=== PATIENT | male | born 1970 | race Caucasian/White ===

== ENCOUNTER 2017-06-20 19:22 | Emergency (ER) | payer SELFPAY ==
[~2017-06-20] VITALS: Ht 175.3 cm; Wt 77.0 kg
[~2017-06-20 19:22] MED LIST: MELO15TA2 PO; ROBA750T3 PO; TRAM50 PO; VARE.5 PO
[2017-06-20 19:39] VITALS: BP 177/112; PULSE 92; RESP 18; TEMP 98.6; O2SAT 98
[2017-06-20] MEDS ORDERED: CARA1TAB6 PO (19:39)
[2017-06-20] MEDS ORDERED: AMLO10TA2 PO (19:39)
[2017-06-20] MEDS ORDERED: NEXI20CA PO (19:39)
[2017-06-20] MEDS ORDERED: SODIUM CHLOR 0.9% 1000 ML INJ 1,000 ML IV SCH (19:52)
[2017-06-20] MEDS ORDERED: SODIUM CHLORIDE 0.9% FLUSH 10 ML FLUSH IV FLUSH PRN (20:00)
[2017-06-20] MEDS ORDERED: LORazepam 2 MG/ML VIAL IV PUSH ONE (20:00)
--- NOTE | 2017-06-20 20:00 | PD ---
HPI Chief Complaint: Flank/Kidney Pain Time Seen by Provider: 19:40 Travel History International Travel<30 days: No Contact w/Intl Traveler<30days: No Traveled to known affect area: No History of Present Illness HPI 47yo M with PMH of HTN, alcohol abuse, gastric ulcer, nephrolithiasis presents to the ED with c/o left sided abdominal pain for 3 days. States it starts in left flank and radiates to left abdomen and it is sharp, constant. Had increased urinary frequency and urine looked a little pink. Also with palpitations and diaphoresis that started yesterday and is episodic. Last drank alcohol 1 week ago and said he does not drink every day anymore. Denies any fever, cough, chest pain, sob, n/v, focal weakness or numbness. PFSH Past Medical History Cardiovascular Problems: Yes Diminished Hearing: No Gastrointestinal Disorders: Yes GERD: Yes Hypertension: Yes Kidney Stones: Yes Renal Failure: Yes (pt states) Tetanus Vaccination: Unknown Influenza Vaccination: No Past Surgical History Abdominal Surgery: Yes Appendectomy: Yes Social History Alcohol Use: No Tobacco Use: Yes Substance Use: No Allergies-Medications (Allergen,Severity, Reaction): Coded Allergies: epinephrine (Unverified Allergy, Severe, Anaphylaxis, 06/20/17) Reported Meds & Prescriptions Reported Meds & Active Scripts Active Tylenol (Acetaminophen) 325 Mg Tab 650 Mg PO Q6H PRN Reported Nexium (Esomeprazole DR) 20 Mg Capdr 20 Mg PO DAILY Carafate (Sucralfate) 1 Gram Tab 1 Gm PO QID On empty stomach Amlodipine (Amlodipine Besylate) 10 Mg Tab 10 Mg PO BID Review of Systems Except as stated in HPI: all other systems reviewed are Neg Physical Exam Narrative GENERAL: 47yo M in moderate distress. SKIN: Focused skin assessment warm/dry. HEAD: Atraumatic. Normocephalic. EYES: Pupils equal and round at 5mm bilaterally. EOMI. ENT: No nasal bleeding or discharge. Mucous membranes pink and moist. NECK: Trachea midline. No JVD. CARDIOVASCULAR: Regular rate and rhythm. No murmur appreciated. RESPIRATORY: No accessory muscle use. Clear to auscultation. Breath sounds equal bilaterally. GASTROINTESTINAL: Abdomen soft, +TTP LUQ. No rebound tenderness or guarding. BACK: No midline ttp thoracic or lumbar spine. +CVA tenderness on left. MUSCULOSKELETAL: No obvious deformities. No clubbing. No cyanosis. No edema. NEUROLOGICAL: Awake and alert. No obvious cranial nerve deficits. Motor grossly within normal limits. Normal speech. +Tongue fasciculations. +Mild tremors in upper extremities. Data Data Last Documented VS Vital Signs Date Time Temp Pulse Resp B/P (MAP) Pulse Ox O2 Delivery O2 Flow Rate FiO2 06/20/17 20:37 92 18 163/109 (127) 98 Room Air 06/20/17 19:39 98.6 Orders Orders Lorazepam Inj (Ativan Inj) (06/20/17 20:00) Complete Blood Count With Diff (06/20/17 19:52) Comprehensive Metabolic Panel (06/20/17 19:52) Lipase (06/20/17 19:52) Prothrombin Time / Inr (Pt) (06/20/17 19:52) Act Partial Throm Time (Ptt) (06/20/17 19:52) Urinalysis - C+S If Indicated (06/20/17 19:52) Ct Abd/Pel W/O Iv Contrast (06/20/17 19:52) Iv Access Insert/Monitor (06/20/17 19:52) Ecg Monitoring (06/20/17 19:52) Oximetry (06/20/17 19:52) Sodium Chlor 0.9% 1000 Ml Inj (Ns 1000 M (06/20/17 19:52) Sodium Chloride 0.9% Flush (Ns Flush) (06/20/17 20:00) Troponin I (06/20/17 19:53) Alcohol (Ethanol) (06/20/17 19:54) Morphine Inj (Morphine Inj) (06/20/17 20:30) Morphine Inj (Morphine Inj) (06/20/17 21:15) Ed Discharge Order (06/20/17 21:45) Labs Laboratory Tests Test 06/20/17 19:55 White Blood Count 8.4 TH/MM3 Red Blood Count 4.73 MIL/MM3 Hemoglobin 14.9 GM/DL Hematocrit 44.8 % Mean Corpuscular Volume 94.7 FL Mean Corpuscular Hemoglobin 31.5 PG Mean Corpuscular Hemoglobin Concent 33.2 % Red Cell Distribution Width 12.9 % Platelet Count 171 TH/MM3 Mean Platelet Volume 8.5 FL Neutrophils (%) (Auto) 54.6 % Lymphocytes (%) (Auto) 34.6 % Monocytes (%) (Auto) 9.5 % Eosinophils (%) (Auto) 0.9 % Basophils (%) (Auto) 0.4 % Neutrophils # (Auto) 4.6 TH/MM3 Lymphocytes # (Auto) 2.9 TH/MM3 Monocytes # (Auto) 0.8 TH/MM3 Eosinophils # (Auto) 0.1 TH/MM3 Basophils # (Auto) 0.0 TH/MM3 CBC Comment DIFF FINAL Differential Comment Prothrombin Time 10.2 SEC Prothromb Time International Ratio 0.9 RATIO Activated Partial Thromboplast Time 26.5 SEC Urine Color YELLOW Urine Turbidity CLEAR Urine pH 6.0 Urine Specific [place] 1.007 Urine Protein NEG mg/dL Urine Glucose (UA) NEG mg/dL Urine Ketones NEG mg/dL Urine Occult Blood MOD Urine Nitrite NEG Urine Bilirubin NEG Urine Leukocyte Esterase NEG Urine RBC 10-14 /hpf Urine Squamous Epithelial Cells 0-5 /hpf Microscopic Urinalysis Comment CULT NOT INDICATED Blood Urea Nitrogen 9 MG/DL Creatinine 0.83 MG/DL Random Glucose 80 MG/DL Total Protein 8.3 GM/DL Albumin 4.0 GM/DL Calcium Level 8.8 MG/DL Alkaline Phosphatase 84 U/L Aspartate Amino Transf (AST/SGOT) 34 U/L Alanine Aminotransferase (ALT/SGPT) 32 U/L Total Bilirubin 0.7 MG/DL Sodium Level 137 MEQ/L Potassium Level 3.6 MEQ/L Chloride Level 103 MEQ/L Carbon Dioxide Level 24.5 MEQ/L Anion Gap 10 MEQ/L Estimat Glomerular Filtration Rate 100 ML/MIN Troponin I LESS THAN 0.02 NG/ML Lipase 600 U/L Ethyl Alcohol Level LESS THAN 3 MG/DL [facility] Medical Decision Making Medical Screen Exam Complete: Yes Emergency Medical Condition: Yes Interpretation(s) EKG: NSR 97bpm. Normal axis. No ST segment elevation or depression. Differential Diagnosis Alcohol withdrawal vs. nephrolithiasis vs. pyelonephritis vs. gastritis Narrative Course 47yo M with left flank pain radiating to left abdomen for 3 days. Pt states he no longer abuses alcohol and that last time he drank was 1 week ago. Labs reviewed, no leukocytosis. H/H normal. Troponin negative. Lipase is mildly elevated at 600. LFTs normal. Alcohol negative. Pt has resting tremors and tongue fasciculations so gave ativan 1gm IV. UA showed moderate blood. No leukocyte. Culture not indicated. Pt is not nauseous. Given morphine for pain. Pt reevaluated at bedside and is no longer tremulous. Pt's pain also improved. CT a/p showed tiny stones in left kidney and left renal pelvis appears prominent could be a partial congenital UPJ obstruction. Can follow up with urology as needed. Pt also has his own entry level accountant to follow up with. Pt is tolerating PO and feels better. Return precautions given. Diagnosis Primary Impression: Nephrolithiasis Referrals: Sarabjit Crawford DO as needed Patient Instructions: General Instructions Departure Forms: Tests/Procedures Additional Instructions: Please follow up with urology as needed. Please also follow up with your entry level accountant. Please return to the ED if symptoms worsen. Med/Other Pt SpecificInfo: Prescription(s) given Scripts Acetaminophen (Tylenol) 325 Mg Tab 650 MG PO Q6H Y for PAIN SCALE 1 TO 4, #20 TAB 0 Refills Prov: Jaja Christine DO 06/20/17 Disposition: 01 DISCHARGE HOME Condition: Stable Jaja Christine DO Jun 20, 2017 20:00
[2017-06-20 20:03] LABS: AUTOMATED NEUTROPHIL # 4.6 TH/MM3 (1.8-7.7); BASOPHIL % 0.4 % (0.0-2.0); BILIRUBIN, URINE NEG (NEG); BLOOD, URINE MOD (NEG); EOSINOPHIL # 0.1 TH/MM3 (0-0.4); EOSINOPHIL % 0.9 % (0.0-4.0); GLUCOSE,URINE NEG (NEG); HEMATOCRIT 44.8 % (39.0-51.0); HEMOGLOBIN 14.9 GM/DL (13.0-17.0); KETONE, URINE NEG (NEG); LYMPH % 34.6 % (9.0-44.0); LYMPHOCYTE # 2.9 TH/MM3 (1.0-4.8); MEAN CELL VOLUME 94.7 FL (80.0-100.0); MEAN CORPUSCULAR HEMOGLOBIN 31.5 PG (27.0-34.0); MEAN CORPUSCULAR HGB CONC 33.2 % (32.0-36.0); MEAN PLATELET VOLUME 8.5 FL (7.0-11.0); MONO % 9.5 % (0.0-8.0); MONOCYTE # 0.8 TH/MM3 (0-0.9); NEUT % 54.6 % (16.0-70.0); NITRITE,URINE NEG (NEG); PLATELET COUNT 171 TH/MM3 (150-450); RED BLOOD COUNT 4.73 MIL/MM3 (4.50-5.90); RED CELL DISTRIBUTION WIDTH 12.9 % (11.6-17.2); URINE LEUKOCYTE ESTERASE NEG (NEG); WHITE BLOOD COUNT 8.4 TH/MM3 (4.0-11.0)
[2017-06-20 20:05] VITALS: O2SAT 98
[2017-06-20 20:09] LABS: URINE COLOR YELLOW (YELLW/STRAW)
[2017-06-20 20:11] LABS: SQUAMOUS EPITHELIAL CELL URINE 0-5 /hpf (0-5)
[2017-06-20 20:14] LABS: CHLORIDE 103 MEQ/L (98-107); SODIUM (NA) 137 MEQ/L (136-145)
[2017-06-20 20:18] LABS: BICARBONATE 24.5 MEQ/L (21.0-32.0); BLOOD UREA NITROGEN 9 MG/DL (7-18); CALCIUM 8.8 MG/DL (8.5-10.1); GLUCOSE,RANDOM 80 MG/DL (74-106); LIPASE 600 U/L (73-393)
[2017-06-20 20:21] LABS: ALT (GPT) 32 U/L (12-78); AST (GOT) 34 U/L (15-37); CREATININE 0.83 MG/DL (0.60-1.30); GLOMERULAR FILTRATION RATE 100 ML/MIN (>89)
[2017-06-20 20:23] LABS: TOTAL BILIRUBIN ADULT 0.7 MG/DL (0.2-1.0); TOTAL PROTEIN 8.3 GM/DL (6.4-8.2)
[2017-06-20 20:24] LABS: ALKALINE PHOSPHATASE 84 U/L (45-117)
[2017-06-20 20:25] LABS: INTERNATIONAL NORMALIZED RATIO 0.9 RATIO; PROTHROMBIN TIME - PATIENT 10.2 SEC (9.8-11.6)
[2017-06-20] MEDS ORDERED: MORPHINE SULFATE 8 MG/ML INJ IV PUSH ONE (20:30)
[2017-06-20 20:37] VITALS: BP 163/109; PULSE 92; RESP 18; O2SAT 98
--- NOTE | 2017-06-20 20:45 | RADRPT ---
EXAM DATE/TIME: 06/20/2017 20:05 [facility] COMPARISON: No previous studies available for comparison. INDICATIONS : Left flank pain. ORAL CONTRAST: No oral contrast ingested. RADIATION DOSE: 13.91 CTDIvol (mGy) MEDICAL HISTORY : Gastroesophageal reflux disease. Renal failure, acute. Hypertension. SURGICAL HISTORY : Appendectomy. Colon resection. ENCOUNTER: Initial ACUITY: 1 day PAIN SCALE: 8/10 LOCATION: Left flank TECHNIQUE: Volumetric scanning of the abdomen and pelvis was performed. Using automated exposure control and ad justment of the mA and/or kV according to patient size, radiation dose was kept as low as reasonably achievable to obtain optimal diagnostic quality images. DICOM format image data is available electro nically for review and comparison. FINDINGS: CT Abdomen: The liver left lower pole kidney, however there is slight hydronephrosis in the left kidn ey may be due to a partial UPJ obstruction. No definite ureteral stone is seen. There is no evidence for any appreciable pathological adenopathy, free fluid, or bowel obstruction. The liver is fatty wi thout focal lesions or technique. CT pelvis: There is no evidence for mass, abscess formation, or any significant adenopathy within the pelvis. The prostate gland is inhomogeneous and measures 3.0 X 3.8 cm in AP and transverse diameters and nonspecific. There are numerous diverticuli mainly in the sigmoid colon without definite signs o f diverticulitis. CONCLUSION: 1. There is a tiny stones in the left kidney and left renal pelvis appears prominent could be a parti al congenital UPJ obstruction. 2. Fatty liver. Pete Yu MD on June 20, 2017 at 20:39 Board Certified Radiologist. This report was verified electronically.
[2017-06-20] MEDS ORDERED: MORPHINE SULFATE 4 MG/ML INJ IV PUSH ONE (21:15)
[2017-06-20] MEDS ORDERED: TYLE325T PO (21:33)
[2017-06-20 21:58] VITALS: BP 156/100; PULSE 90; RESP 18; O2SAT 98
--- NOTE | 2017-06-20 22:20 | EKG ---
Date Performed: 06/20/2017 Time Performed: 19:29:44 PTAGE: 47 years EKG: Sinus rhythm NORMAL ECG NO PREVIOUS TRACING DOCTOR: Tate Walsh Interpretating Date/Time 06/20/2017 22:19:07
--- NOTE | 2017-06-20 22:20 | EKG ---
Date Performed: 06/20/2017 Time Performed: 19:29:44 PTAGE: 47 years EKG: Sinus rhythm NORMAL ECG NO PREVIOUS TRACING DOCTOR: Tate Walsh Interpretating Date/Time 06/20/2017 22:19:07
--- NOTE | 2017-06-20 22:20 | EKG ---
Date Performed: 06/20/2017 Time Performed: 19:29:44 PTAGE: 47 years EKG: Sinus rhythm NORMAL ECG NO PREVIOUS TRACING DOCTOR: Tate Walsh Interpretating Date/Time 06/20/2017 22:19:07
== END 2017-06-20 22:17 | disposition home or self-care (01) ==
LOC: PHED 19:22
DX: N20.0 Calculus of kidney (principal); I10 Essential (primary) hypertension; R00.2 Palpitations; Z72.0 Tobacco use; Z79.899 Other long term (current) drug therapy
CPT/HCPCS: 74176; 80053; 80307; 81001; 83690; 84484; 85025; 85610; 85730; 93005; 96361; 96374; 96375; 96376; 99285; J2060; J2270; J7030

== ENCOUNTER 2017-09-14 19:03 | Emergency (ER) | payer SELFPAY ==
[~2017-09-14 19:03] MED LIST changes: +AMLO10TA2 PO; +CARA1TAB6 PO; -MELO15TA2 PO; +NEXI20CA PO; -ROBA750T3 PO; -TRAM50 PO; +TYLE325T PO; -VARE.5 PO
[2017-09-14 19:32] VITALS: BP 176/90; PULSE 110; RESP 18; TEMP 98.3; O2SAT 96
[2017-09-14] MEDS ORDERED: CEPH-460 PO (19:49)
[2017-09-14] MEDS ORDERED: BACT800T5 PO (19:49)
--- NOTE | 2017-09-14 19:54 | PD ---
HPI Chief Complaint: Lump, Cyst, Hernia Time Seen by Provider: 19:45 Travel History International Travel<30 days: No Contact w/Intl Traveler<30days: No Traveled to known affect area: No History of Present Illness HPI 47 year old male presents for evaluation of an area of pain and tenderness on the occipital scalp. Symptoms Started this morning. He reports a throbbing pain which is constant, reproduced with palpation, radiates down to his neck. Denies any head trauma. Denies fevers or chills. Denies any drainage. He has no other complaints at this time. PFSH Past Medical History Cardiovascular Problems: Yes Diminished Hearing: No Gastrointestinal Disorders: Yes GERD: Yes Hypertension: Yes Kidney Stones: Yes Myocardial Infarction: Yes Renal Failure: Yes (pt states) Seizures: Yes (" black out seizures ") Tetanus Vaccination: < 5 Years Influenza Vaccination: No ?: Not Past Surgical History Abdominal Surgery: Yes Appendectomy: Yes Social History Alcohol Use: No Tobacco Use: Yes (pack a week ) Substance Use: No Allergies-Medications (Allergen,Severity, Reaction): Coded Allergies: epinephrine (Unverified Allergy, Severe, Anaphylaxis, 09/14/17) Reported Meds & Prescriptions Reported Meds & Active Scripts Active Keflex (Cephalexin) 500 Mg Cap 500 Mg PO Q8H Bactrim DS (Sulfamethoxazole-Trimethoprim) 800-160 Mg Tab 1 Tab PO BID Tylenol (Acetaminophen) 325 Mg Tab 650 Mg PO Q6H PRN Reported Nexium (Esomeprazole DR) 20 Mg Capdr 20 Mg PO DAILY Carafate (Sucralfate) 1 Gram Tab 1 Gm PO QID On empty stomach Amlodipine (Amlodipine Besylate) 10 Mg Tab 10 Mg PO BID Review of Systems Except as stated in HPI: all other systems reviewed are Neg Physical Exam Narrative GENERAL: Well-developed well-nourished male in no acute distress SKIN: Warm and dry. There is a 1.5 cm area of erythema and induration on the occipital scalp. Which is tender to palpation There is no vesicle formation, there is no hair loss, there is no fluctuance or drainage. HEAD: Atraumatic. Normocephalic. EYES: Pupils equal and round. No scleral icterus. No injection or drainage. ENT: No nasal bleeding or discharge. Mucous membranes pink and moist. NECK: Trachea midline. No JVD. CARDIOVASCULAR: Regular rate and rhythm. No murmur appreciated. RESPIRATORY: No accessory muscle use. Clear to auscultation. Breath sounds equal bilaterally. NEUROLOGICAL: Awake and alert. No obvious cranial nerve deficits. Motor grossly within normal limits. Normal speech. Data Data Last Documented VS Vital Signs Date Time Temp Pulse Resp B/P (MAP) Pulse Ox O2 Delivery O2 Flow Rate FiO2 09/14/17 19:32 98.3 110 18 176/90 (118) 96 Orders Orders Ed Discharge Order (09/14/17 19:54) [facility] Medical Decision Making Medical Screen Exam Complete: Yes Emergency Medical Condition: Yes Medical Record Reviewed: Yes Differential Diagnosis Cellulitis, folliculitis, carbuncle, kerion, shingles Narrative Course 47-year-old male with one-day history of a focal area of pain and tenderness on the occipital scalp. On examination there is a 1.5 cm area of erythema and induration which is tender to palpation which is most consistent with early cellulitis likely secondary to folliculitis. No evidence of kerion formation or drainable abscess. The patient will be discharged with Bactrim and Keflex. Recommended close follow-up with primary care physician for reexamination in the next few days. He is stable for discharge. Diagnosis Primary Impression: Cellulitis Additional Instructions: Medications prescribed. Warm compresses to the affected area several times a day 10-15 minutes at a time. Follow-up with primary care physician for recheck in 3 or 4 days. Return for any acutely new or worsening symptoms. Med/Other Pt SpecificInfo: Prescription(s) given Scripts Cephalexin (Keflex) 500 Mg Cap 500 MG PO Q8H for Infection, #30 CAP 0 Refills Prov: Mike Narvaez MD 09/14/17 Sulfamethoxazole-Trimethoprim (Bactrim DS) 800-160 Mg Tab 1 TAB PO BID for Infection, #20 TAB 0 Refills Prov: Mike Narvaez MD 09/14/17 Disposition: 01 DISCHARGE HOME Condition: Stable Akira Montaño Sep 14, 2017 19:54
== END 2017-09-14 20:00 | disposition home or self-care (01) ==
LOC: PHEFT 19:03
DX: L03.811 Cellulitis of head [any part, except face] (principal); F17.200 Nicotine dependence, unspecified, uncomplicated
CPT/HCPCS: 99284

== ENCOUNTER 2017-12-10 05:29 | Emergency (ER) | payer SELFPAY ==
[~2017-12-10] VITALS: Ht 177.8 cm; Wt 74.1 kg
[~2017-12-10 05:29] MED LIST changes: +BACT800T5 PO; +CEPH-460 PO
[2017-12-10 05:31] VITALS: BP 161/99; PULSE 114; RESP 18; TEMP 99.4; O2SAT 99
[2017-12-10 05:47] VITALS: O2SAT 98
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
--- NOTE | 2017-12-10 07:08 | RADRPT ---
EXAM DATE/TIME: 12/10/2017 06:25 [facility] COMPARISON: No previous studies available for comparison. INDICATIONS : Trauma to third digit of left hand. MEDICAL HISTORY : Gastroesophageal reflux disease. Renal failure, acute. Hypertension. SURGICAL HISTORY : Appendectomy. Colon resection. ENCOUNTER: Initial ACUITY: 2 days PAIN SCORE: 7/10 LOCATION: Left upper extremity hand, 3rd digit, PIP FINDINGS: Examination of the third digit of the left hand demonstrates no evidence of fracture or dislocation. No radiopaque foreign bodies are seen. The soft tissues are intact. CONCLUSION: Negative for fracture or dislocation. Follow up in 7-10 days is suggested if symptoms persist. Dustin Granados MD FACR on December 10, 2017 at 7:06 Board Certified Radiologist. This report was verified electronically.
== END 2017-12-10 07:10 | disposition home or self-care (01) ==
LOC: PHED 05:29
DX: S60.032A Contusion of left middle finger without damage to nail, initial encounter (principal); S70.212A Abrasion, left hip, initial encounter; K21.9 Gastro-esophageal reflux disease without esophagitis; I10 Essential (primary) hypertension; I12.9 Hypertensive chronic kidney disease with stage 1 through stage 4 chronic kidney disease, or unspecified chronic kidney disease; N18.9 Chronic kidney disease, unspecified; Z86.69 Personal history of other diseases of the nervous system and sense organs; Z87.442 Personal history of urinary calculi; X58.XXXA Exposure to other specified factors, initial encounter
CPT/HCPCS: 29130; 73140